=== PATIENT | female | born 1990 | race Caucasian/White ===

== ENCOUNTER → 2016-08-23 | Outpatient (CLI) | payer OTHER ==
--- NOTE | 2016-08-26 12:39 | SLEEPHOME ---
DATE OF PROCEDURE: 08/23/2016 REFERRING PHYSICIAN: Claudia Lobo INTERPRETATION: Diagnostic home sleep testing was performed due to concern for the obstructive sleep apnea syndrome. For testing, a NOX-T3 respiratory monitoring device was used. Continuous record was made of pulse, oxygen saturation, airflow, chest and abdominal strain, and body position. 10 hours and 59 minutes of data were reviewed. Of these, 9 hours and 12 minutes were marked as time in bed. During the interval marked time in bed, there were only 36 respiratory events identified of 10 seconds in duration or greater for a respiratory event index of 3.9 per hour. Baseline pulse rate 59 beats per minute. Pulse rate ranged as high as 159 beats per minute. Baseline saturation 94%. Lowest oxygen saturation 90%. The respiratory events were no seen related to snoring activity. IMPRESSION: Borderline diagnostic home sleep testing with respiratory event index of 3.9 is suggestive, but not conclusive for the obstructive sleep apnea syndrome. RECOMMENDATION: The patient home testing tends to underestimate the severity of disease, if the patient's symptoms persist retesting or formal in laboratory studies may be more conclusive.
== END ==
LOC: M SLEEP HO 13:58
PROVIDERS: ATTEND Nurse Practitioner Adult Health
DX: G47.9 Sleep disorder, unspecified (principal)